=== PATIENT | male | born 1975 | race Caucasian/White ===

== ENCOUNTER 2016-11-26 11:47 | Emergency (ER) | payer BC, OTHER ==
[2016-11-26 11:52] VITALS: TEMP 97.9
[2016-11-26 12:51] LABS: % IMMATURE GRANULYOCYTES 0.5 % (0.0-1.1); ABSOLUTE IMMATURE GRANULOCYTES 0.02 10^3/uL (0.00-0.10); ADD DIFF? NO; ADD MORPH? NO; ADD SCAN? NO; ATYPICAL LYMPHOCYTE FLAG 20 (0-99); FRAGMENT RBC FLAG 0 (0-99); HEMATOCRIT 46.7 % (40.0-51.0); HEMOGLOBIN 16.5 g/dL (13.7-17.5); LEFT SHIFT FLG 0 (0-99); LIPEMIA HEMOLYSIS FLAG 90 (0-99); MEAN CELL HEMOGLOBIN 29.6 pg (27.9-34.1); MEAN CELL HEMOGLOBIN CONCENTR. 35.3 g/dL (32.4-36.7); MEAN CELL VOLUME 83.8 fL (81.5-99.8); MEAN PLATELET VOLUME 9.1 fL (8.7-11.7); PLATELET CLUMPS FLAG 0 (0-99); PLATELET COUNT 240 10^3/uL (150-400); RED BLOOD CELL COUNT 5.57 10^6/uL (4.40-6.38); RED CELL DISTRIBUTION WIDTH 12.3 % (11.5-15.2)
[2016-11-26 13:03] LABS: ANION GAP 12 mEq/L (8-16); CALCIUM 9.9 mg/dL (8.5-10.4); CARBON DIOXIDE 27 mEq/l (22-31); CHLORIDE 102 mEq/L (97-110); CREATININE 0.9 mg/dL (0.7-1.3); GLOMERULAR FILTRATION RATE > 60; GLUCOSE 101 mg/dL (70-100); POTASSIUM 4.2 mEq/L (3.5-5.2); SODIUM 141 mEq/L (134-144)
--- NOTE | 2016-11-26 13:09 | CPEKG ---
Heart Rate: 74 RR Interval: 811 P-R Interval: 144 QRSD Interval: 114 QT Interval: 392 QTC Interval: 435 P [place]: 58 QRS [place]: 80 T Wave [place]: 16 EKG Severity - ABNORMAL ECG - EKG Impression: SINUS RHYTHM Electronically Signed By: Nahid Ray 26-Nov-2016 15:01:47
[2016-11-26 13:15] LABS: TROPONIN I < 0.012 ng/mL (0-0.034)
--- NOTE | 2016-11-26 13:45 | EDPHY ---
H & P Stated Complaint: Left chest pain, started early this morning. Time Seen by Provider: 11/26/16 12:31 HPI/ROS: CHIEF COMPLAINT: Chronic intermittent palpitations, left-sided chest pain day HISTORY OF PRESENT ILLNESS: The patient presents to the ED for evaluation of two symptoms. The 1st is intermittent palpitations for the past several years. The patient reports palpitations which occur primarily at night approximately 1 to 2 times a week. He describes the palpitations as an irregular heart rate which tends to last 1-2 hours. Patient did have an episode of left-sided chest discomfort last night which began at approximately 1 o'clock in the morning. Patient was concerned about the pain as it was developing. He actually drove to the emergency department and prior to checking in was able to belch which resulted in complete resolution of his symptoms. The patient had mild recurrent his symptoms today. The patient denies any exertional chest pain. He denies pleuritic chest pain. He denies asymmetric calf pain or shortness of breath. The patient does have some mild discomfort in his epigastrium. REVIEW OF SYSTEMS: A comprehensive 10 point review of systems is otherwise negative aside from elements mentioned in the history of present illness. Source: Patient Exam Limitations: No limitations - Personal History Current Tetanus Diphtheria and Acellular Pertussis (TDAP): Yes - Medical/Surgical History Hx Asthma: No Hx Chronic Respiratory Disease: No Hx Diabetes: No Hx Cardiac Disease: No Hx Renal Disease: No Hx Cirrhosis: No Hx Alcoholism: No Hx HIV/AIDS: No Hx Splenectomy or Spleen Trauma: No Other PMH: Irregular heart beat - Social History Smoking Status: Never smoked - Physical Exam Exam: General Appearance: Alert, no distress Eyes: Pupils equal and round no pallor or injection ENT, Mouth: Mucous membranes moist Respiratory: There are no retractions, lungs are clear to auscultation Cardiovascular: Regular rate and rhythm Gastrointestinal: Abdomen is soft and nontender, no masses, bowel sounds normal Neurological: A&O, normal motor function, normal sensory exam, normal cranial nerves Skin: Warm and dry, no rashes Musculoskeletal: Neck is supple nontender Extremities: symmetrical, full range of motion Constitutional: Initial Vital Signs Temperature (C) 36.6 C 11/26/16 11:48 Heart Rate 81 11/26/16 11:48 Respiratory Rate 16 11/26/16 11:48 Blood Pressure 143/82 H 11/26/16 11:48 O2 Sat (%) 97 11/26/16 11:48 O2 Delivery Mode Room Air Allergies/Adverse Reactions: No Known Allergies Allergy (Unverified 11/26/16 11:51) Home Medications: Medication Instructions Recorded NK [No Known Home Meds] 11/26/16 Medical Decision Making - Diagnostics EKG Interpretation: EKG: Complete interpretation has been separately recorded in the [facility] archive. Summary impression: Sinus rhythm Imaging: Chest x-ray AP: Images reviewed by myself, no cardiomegaly, no pneumothorax or infiltrate. ED Course/Re-evaluation: The patient presents to the ED after an episode of atypical chest pain which improved after belching. The patient has no risk factors for cardiac disease. The patient's EKG demonstrates no evidence of ischemia. The patient's troponin is normal after 12 hours of symptoms. The patient has had intermittent palpitations for the past several years. He was placed on a conveyor monitor without recurrence of arrhythmia in the ED. At this point time I clinical suspicion for undiagnosed coronary artery disease is low. I have told the patient that given his risk profile it would be reasonable to have him follow up with Cardiology for further evaluation of his symptoms. The patient is comfortable with this plan and disposition. The patient does understand return to the ED immediately for worsening symptoms or other concerns. Differential Diagnosis: Differential diagnosis considered includes acute coronary syndrome, pericarditis , PVCs, atrial fibrillation, esophageal spasm, gastritis/esophagitis - Data Points Laboratory Results: Laboratory Results 11/26/16 12:30 11/26/16 12:30 11/26/16 11/26/16 12:30 12:30 WBC 4.23 10^3/uL 10^3/uL (3.80-9.50) RBC 5.57 10^6/uL 10^6/uL (4.40-6.38) Hgb 16.5 g/dL g/dL (13.7-17.5) Hct 46.7 % % (40.0-51.0) MCV 83.8 fL fL (81.5-99.8) MCH 29.6 pg pg (27.9-34.1) MCHC 35.3 g/dL g/dL (32.4-36.7) RDW 12.3 % % (11.5-15.2) Plt Count 240 10^3/uL 10^3/uL (150-400) MPV 9.1 fL fL (8.7-11.7) Neut % (Auto) 57.2 % % (39.3-74.2) Lymph % (Auto) 31.4 % % (15.0-45.0) Gage % (Auto) 5.7 % % (4.5-13.0) Eos % (Auto) 4.3 % % (0.6-7.6) Baso % (Auto) 0.9 % % (0.3-1.7) Nucleat RBC Rel Count 0.0 % % (0.0-0.2) Absolute Neuts (auto) 2.42 10^3/uL 10^3/uL (1.70-6.50) Absolute Lymphs (auto) 1.33 10^3/uL 10^3/uL (1.00-3.00) Absolute Monos (auto) 0.24 10^3/uL L 10^3/uL (0.30-0.80) Absolute Eos (auto) 0.18 10^3/uL 10^3/uL (0.03-0.40) Absolute Basos (auto) 0.04 10^3/uL 10^3/uL (0.02-0.10) Absolute Nucleated RBC 0.00 10^3/uL 10^3/uL (0-0.01) Immature Gran % 0.5 % % (0.0-1.1) Immature Gran # 0.02 10^3/uL 10^3/uL (0.00-0.10) Sodium 141 mEq/L mEq/L (134-144) Potassium 4.2 mEq/L mEq/L (3.5-5.2) Chloride 102 mEq/L mEq/L (97-110) Carbon Dioxide 27 mEq/l mEq/l (22-31) Anion Gap 12 mEq/L mEq/L (8-16) BUN 9 mg/dL mg/dL (7-23) Creatinine 0.9 mg/dL mg/dL (0.7-1.3) Estimated GFR > 60 Glucose 101 mg/dL H mg/dL (70-100) Calcium 9.9 mg/dL mg/dL (8.5-10.4) Troponin I < 0.012 ng/mL ng/mL (0-0.034) TSH 2.250 uIU/mL uIU/mL (0.465-4.680) Departure - Departure Disposition: Home, Routine, Self-Care Clinical Impression: Chest pain, Palpitations Condition: Good Instructions: Chest Pain (ED) Additional Instructions: 1. Based upon the testing done in the Emergency Department today we see no evidence of a heart attack. 2. We are unable to fully exclude coronary artery disease based upon the testing available in the Emergency Department. 3. For this reason, we would like you to be seen by cardiology for consideration of additional testing within the next 3 days. 4. Please contact the [facility] you have been referred to schedule this appointment as soon as possible. Their offices are typically open from 8:30am- 5pm M-F. 5. Please return to the Emergency Department immediately for any recurrent chest pain, difficulty breathing or other concerns. Referrals: Kim Jhaveri MD [Primary Care Provider] - As per Instructions Cyrus Hensley MD [Medical Doctor] - As per Instructions
[2016-11-26 14:23] VITALS: BP 130/80; PULSE 65; RESP 18; O2SAT 95
== END 2016-11-26 14:22 | disposition home or self-care (01) ==
DX: R00.2 Palpitations (principal); R07.89 Other chest pain